=== PATIENT | male | born 1980 | race Hispanic/Latino ===

== ENCOUNTER 2023-05-30 09:30 | Emergency (ER) | payer SELFPAY ==
[2023-05-30] MEDS ORDERED: HYDROCODONE/APAP 10/325 TAB ONE (10:14)
[2023-05-30] MEDS ORDERED: TDAP (DIPHTH,PERTUSS(ACELL),TET VAC) 0.5 ML VIAL IMVAC ONE (10:23)
--- NOTE | 2023-05-30 10:40 | ER ---
Nurse's Notes [facility] Name: Kayden Melton Age: 43 yrs Sex: Male : 1980 Arrival Date: 05/30/2023 Time: 09:30 Bed 19 Private MD: Diagnosis: Puncture wound without foreign body of forearm-ulnar artery decreased flow, flexor diditorum disruption;Unilateral inguinal hernia, without obstruction or gangrene-LEFT Presentation: 05/30 09:37 Chief complaint: Patient states: PUNCTURE WOUND TO LEFT DISTAL ULNAR AREA WITH STEAK bp KNIFE, STATES ACCIDENTAL WHILE METAL WORKING. Coronavirus screen: At this time, the client does not indicate any symptoms associated with coronavirus-19. Ebola Screen: No symptoms or risks identified at this time. Complicating Factors: There are no complicating factors for this patient. Initial Sepsis Screen: Does the patient meet any 2 criteria? No. Patient's initial sepsis screen is negative. Does the patient have a suspected source of infection? No. Patient's initial sepsis screen is negative. Risk Assessment: Do you want to hurt yourself or someone else? Patient reports no desire to harm self or others. Onset of symptoms was May 30, 2023 at 09:00. 09:37 Method Of Arrival: Ambulatory bp 09:37 Acuity: JONATHAN 3 bp Triage Assessment: 09:38 General: Appears distressed, Behavior is cooperative, appropriate for age, anxious. bp Pain: Complains of pain in left wrist. EENT: No deficits noted. Neuro: No deficits noted. Cardiovascular: No deficits noted. Respiratory: No deficits noted. GI: No signs and/or symptoms were reported involving the gastrointestinal system. : No signs and/or symptoms were reported regarding the genitourinary system. Derm: No deficits noted. Musculoskeletal: No deficits noted. Injury Description: Laceration sustained to left wrist. Historical: - Allergies: 09:38 No Known Allergies; bp - Home Meds: 09:38 None [Active]; bp - PMHx: 09:38 None; bp - Immunization history:: Last tetanus immunization: unknown. - Social history:: Smoking status: unknown. Screenin:45 [facility] ED Fall Risk Assessment (Adult) Score/Fall Risk Level 0 - 2 = Low Risk. Abuse eh3 screen: Denies threats or abuse. Denies injuries from another. Nutritional screening: No deficits noted. Tuberculosis screening: No symptoms or risk factors identified. Assessment: 09:35 General: Appears distressed, uncomfortable, Behavior is cooperative, appropriate for eh3 age, restless. Pain: Complains of pain in left arm. Neuro: Level of Consciousness is awake, alert, obeys commands, Oriented to person, place, time, situation. Cardiovascular: Capillary refill < 3 seconds Patient's skin is warm and dry. Respiratory: Airway is patent Respiratory effort is even, unlabored, Respiratory pattern is regular, symmetrical. GI: Abdomen is round non-distended. Derm: Skin is intact, is healthy with good turgor, Wound noted palmar aspect of left forearm Wound is puncture. Musculoskeletal: CMS intact in all except left hand. Unable to move left fingers. 09:35 Injury Description: Laceration is clean, 0.5 to 2.5 cm long, bleeding moderately, with eh3 pulsatile bleeding. 10:30 Reassessment: Patient appears in no apparent distress at this time. Patient and/or 3 family updated on plan of care and expected duration. Pain level reassessed. Patient is alert, oriented x 3, equal unlabored respirations, skin warm/dry/pink. 11:30 Reassessment: Patient appears in no apparent distress at this time. Patient and/or 3 family updated on plan of care and expected duration. Pain level reassessed. Patient is alert, oriented x 3, equal unlabored respirations, skin warm/dry/pink. Vital Signs: 09:32 BP 124 / 92; Pulse 85; Resp 20; Pulse Ox 93% on R/A; eh3 10:30 BP 160 / 119; Pulse 58; Resp 18; Pulse Ox 100% on R/A; eh3 11:30 BP 140 / 82; Pulse 60; Resp 18; Pulse Ox 98% on R/A; eh3 ED Course: 09:31 Patient arrived in ED. rg4 09:33 Arm band placed on Patient placed in an exam room, on a stretcher. ld1 09:35 Lori Neville PA-C is PHCP. sb4 09:35 Yandel Godinez MD is Attending Physician. sb4 09:35 Lisa Bruno, TAYLA is Primary Nurse. eh3 09:38 Triage completed. bp 09:45 Patient has correct armband on for positive identification. Placed in gown. Bed in low eh3 position. Call light in reach. Side rails up X2. Provided Education on: N/A. delivery assistant on. Pulse ox on. Warm blanket given. 09:59 Forearm Left XRAY In Process Unspecified. EDMS 10:00 Inserted saline lock: 20 gauge in right forearm, using aseptic technique. Blood eh3 collected. 10:02 Attending Physician role handed off by Yandel Godinez MD [facility] 10:02 Delta English MD is Attending Physician. [facility] 11:00 Wound care: to puncture located on palmar aspect of left forearm was cleaned with eh3 Betadine, irrigated with normal saline, dressed with 4X4s, Kerlix. 11:56 No provider procedures requiring assistance completed. Patient transferred, IV remains eh3 in place. Administered Medications: 10:00 Drug: [place] PO 10 mg-325 mg 1 tabs Route: PO; eh3 11:00 Follow up: Response: Pain is decreased eh3 10:25 Drug: Boostrix Tdap IM 0.5 ml Route: IM; Site: right deltoid; eh3 11:00 Follow up: Response: (VIS) Vaccine information sheet provided today. Questions and/or eh3 concerns addressed. VIS edition date: Jun 26, 2021.; No adverse reaction 11:00 Drug: NS 0.9% IV 1000 ml Route: IV; Rate: 1 bolus; Site: right forearm; eh3 11:55 Follow up: IV Status: Infusion continued upon transfer; IV Intake: 300ml eh3 11:00 Drug: morphine IVP or IV 4 mg Route: IVP; Infused Over: 4 mins; Site: right forearm; eh3 11:55 Follow up: Response: No adverse reaction; Pain is decreased eh3 11:00 Drug: Ondansetron IVP 4 mg Route: IVP; Site: right forearm; eh3 11:55 Follow up: Response: No adverse reaction eh3 11:00 Drug: ceFAZolin IVPB 2 grams Route: IVPB; Infused Over: 30 mins; Site: right forearm; eh3 11:30 Follow up: Response: No adverse reaction; IV Status: Completed infusion; IV Intake: eh3 100ml Medication: 10:25 Vaccine Information Statement (VIS) provided today. Questions and/or concerns eh3 addressed. VIS edition date: June 26, 2021. Intake: 11:30 IV: 100ml; Total: 100ml. eh3 11:55 IV: 300ml; Total: 400ml. eh3 Outcome: 10:40 ER care complete, transfer ordered by MD. day 11:56 Transferred by ground EMS to [facility], Transfer form eh3 completed. 11:56 Condition: stable 11:56 Instructed on the need for transfer. 11:56 Patient left the ED. eh3 Signatures: Dispatcher [employer] EDDelta Ramey MD MD cha Garcia, Rubi rg4 Murphy Cadena, RN RN bp Jimena Murillo RN RN ld1 Lisa Bruno RN RN eh3 Lori Neville, PAFrancie PA-Nellie sb4 Corrections: (The following items were deleted from the chart) 11:44 09:57 Lisa Bruno, TAYLA is Primary Nurse. eh3 eh3
--- NOTE | 2023-05-30 10:40 | EDPHYS ---
Physician Documentation [facility] Name: Kayden Melton Age: 43 yrs Sex: Male : 1980 Arrival Date: 05/30/2023 Time: 09:30 Bed 19 Private MD: ED Physician Delta English HPI: 05/30 10:29 This 43 yrs old Male presents to ER via Ambulatory with complaints of shay Laceration To Arm. 10:29 The patient has a laceration related to: cooking, occurred at home. The laceration(s) shay is(are) located on the dorsal aspect of left forearm and palmar aspect of left forearm. Onset: The symptoms/episode began/occurred just prior to arrival. Associated signs and symptoms: The patient has no apparent associated signs or symptoms. The patient has not experienced similar symptoms in the past. Historical: - Allergies: 09:38 No Known Allergies; bp - Home Meds: 09:38 None [Active]; bp - PMHx: 09:38 None; bp - Immunization history:: Last tetanus immunization: unknown. - Social history:: Smoking status: unknown. ROS: 10:31 Constitutional: Negative for fever, chills, and weight loss, Eyes: Negative for injury, shay pain, redness, and discharge, ENT: Negative for injury, pain, and discharge, Neck: Negative for injury, pain, and swelling, Cardiovascular: Negative for chest pain, palpitations, and edema, Respiratory: Negative for shortness of breath, cough, wheezing, and pleuritic chest pain, Abdomen/GI: Negative for abdominal pain, nausea, vomiting, diarrhea, and constipation, Back: Negative for injury and pain, : Negative for injury, bleeding, discharge, and swelling, Skin: Negative for injury, rash, and discoloration, Neuro: Negative for headache, weakness, numbness, tingling, and seizure, Psych: Negative for depression, anxiety, suicide ideation, homicidal ideation, and hallucinations, Allergy/Immunology: Negative for hives, rash, and allergies, Endocrine: Negative for neck swelling, polydipsia, polyuria, polyphagia, and marked weight changes, Hematologic/Lymphatic: Negative for swollen nodes, abnormal bleeding, and unusual bruising. 10:31 MS/extremity: Positive for decreased range of motion, pain, swelling, tenderness, of the dorsal aspect of left forearm and palmar aspect of left forearm. Exam: 10:31 Constitutional: This is a well developed, well nourished patient who is awake, alert, shay and in no acute distress. Head/Face: Normocephalic, atraumatic. Eyes: Pupils equal round and reactive to light, extra-ocular motions intact. Lids and lashes normal. Conjunctiva and sclera are non-icteric and not injected. Cornea within normal limits. Periorbital areas with no swelling, redness, or edema. ENT: Nares patent. No nasal discharge, no septal abnormalities noted. Tympanic membranes are normal and external auditory canals are clear. Oropharynx with no redness, swelling, or masses, exudates, or evidence of obstruction, uvula midline. Mucous membranes moist. Neck: Trachea midline, no thyromegaly or masses palpated, and no cervical lymphadenopathy. Supple, full range of motion without nuchal rigidity, or vertebral point tenderness. No Meningismus. Chest/axilla: Normal chest wall appearance and motion. Nontender with no deformity. No lesions are appreciated. Cardiovascular: Regular rate and rhythm with a normal S1 and S2. No gallops, murmurs, or rubs. Normal PMI, no JVD. No pulse deficits. Respiratory: Lungs have equal breath sounds bilaterally, clear to auscultation and percussion. No rales, rhonchi or wheezes noted. No increased work of breathing, no retractions or nasal flaring. Abdomen/GI: Soft, non-tender, with normal bowel sounds. No distension or tympany. No guarding or rebound. No evidence of tenderness throughout. Back: No spinal tenderness. No costovertebral tenderness. Full range of motion. Male : Normal genitalia with no discharge or lesions. Skin: Warm, dry with normal turgor. Normal color with no rashes, no lesions, and no evidence of cellulitis. Neuro: Awake and alert, GCS 15, oriented to person, place, time, and situation. Cranial nerves II-XII grossly intact. Motor strength 5/5 in all extremities. Sensory grossly intact. Cerebellar exam normal. Normal gait. Psych: Awake, alert, with orientation to person, place and time. Behavior, mood, and affect are within normal limits. 10:31 Musculoskeletal/extremity: ROM: limited active range of motion due to pain, limited passive range of motion due to pain, Pulses: noted to be 3+ in the left radial artery, Tingling of extremity. numbness, Compartment Syndrome exam of affected extremity: severe pain, numbness, tingling, sensation decreased, Joints: All joints appear normal with full range of motion. Tendon exam: postive for cant flex 3,4 and 5. 11:02 Abdomen/GI: Hernia: noted in the left femoral area, incarceration, is not appreciated, shay tenderness, is not appreciated, bowel sounds are appreciated on auscultation, reduced. 11:02 : CVA tenderness, is absent, Male external genitalia: normal, Bladder: is normal, Sexual behavior: the patient is sexually active, and reports a single partner. Vital Signs: 09:32 BP 124 / 92; Pulse 85; Resp 20; Pulse Ox 93% on R/A; eh3 10:30 BP 160 / 119; Pulse 58; Resp 18; Pulse Ox 100% on R/A; eh3 11:30 BP 140 / 82; Pulse 60; Resp 18; Pulse Ox 98% on R/A; eh3 MDM: 09:35 Patient medically screened. sb4 10:41 Data reviewed: vital signs, nurses notes, lab test result(s), radiologic studies, plain shay films. Consideration of Admission/Observation Escalation of care including admission/observation considered. I considered the following discharge prescriptions or medication management in the emergency department Medications were administered in the Emergency Department. See MAR. Independent interpretation of the following test(s) in the Emergency Department X-Ray: My interpretation is no fx, fb. Test considered but Not performed: CT: no angio. 05/30 10:29 Order name: CBC with Diff [facility] 05/30 10:29 Order name: Comprehensive Metabolic Panel [facility] 05/30 10:29 Order name: PT-INR [facility] 05/30 09:35 Order name: Forearm Left XRAY [facility] 05/30 10:29 Order name: Wound dressing; Complete Time: 11:39 [facility] 05/30 10:29 Order name: NPO; Complete Time: 10:49 [facility] Administered Medications: 10:00 Drug: [place] PO 10 mg-325 mg 1 tabs Route: PO; 3 11:00 Follow up: Response: Pain is decreased 3 10:25 Drug: Boostrix Tdap IM 0.5 ml Route: IM; Site: right deltoid; 3 11:00 Follow up: Response: (VIS) Vaccine information sheet provided today. Questions and/or [facility] concerns addressed. VIS edition date: Jun 26, 2021.; No adverse reaction 11:00 Drug: NS 0.9% IV 1000 ml Route: IV; Rate: 1 bolus; Site: right forearm; 3 11:55 Follow up: IV Status: Infusion continued upon transfer; IV Intake: 300ml [facility] 11:00 Drug: morphine IVP or IV 4 mg Route: IVP; Infused Over: 4 mins; Site: right forearm; 3 11:55 Follow up: Response: No adverse reaction; Pain is decreased 3 11:00 Drug: Ondansetron IVP 4 mg Route: IVP; Site: right forearm; 3 11:55 Follow up: Response: No adverse reaction [facility] 11:00 Drug: ceFAZolin IVPB 2 grams Route: IVPB; Infused Over: 30 mins; Site: right forearm; 3 11:30 Follow up: Response: No adverse reaction; IV Status: Completed infusion; IV Intake: eh3 100ml Disposition Summary: 05/30/23 10:40 Transfer Ordered Transfer Location: [facility] Reason: Higher level of care shay Condition: Stable shay Problem: new shay Symptoms: have improved shay Accepting Physician: to [facility](05/30/23 11:56) eh3 Diagnosis - Puncture wound without foreign body of forearm - ulnar artery decreased flow, shay flexor diditorum disruption - Unilateral inguinal hernia, without obstruction or gangrene - LEFT shay Forms: - Medication Reconciliation Form shay - SBAR form shay Signatures: Dispatcher [employer] EDDelta Ramey MD MD cha Peltier, Brian RN Lisa Winter RN RN eh3 Lori Neville PA-C PA-C sb4 Corrections: (The following items were deleted from the chart) 11:11 10:40 to [facility] 11:56 11:11 to [facility]3
[2023-05-30 10:54] LABS: Absolute Lymphocytes (CBC) 1.3 K/uL (0.7-4.9); Hematocrit 41.6 % (39.6-49.0); Lymphocytes % 18.1 % (15.3-44.8); MCV 91.8 fL (80-100); MPV 9.2 fL (7.6-11.3); RBC Red Blood Cell Count 4.53 M/uL (4.33-5.43)
[2023-05-30] MEDS ORDERED: CEFAZOLIN SODIUM 1 GM/VIAL ONE (11:02)
[2023-05-30] MEDS ORDERED: ONDANSETRON 4 MG/2 ML VIAL ONE (11:03)
[2023-05-30] MEDS ORDERED: MORPHINE 4 MG/ML SYR ONE (11:03)
[2023-05-30] MEDS ORDERED: NA CHLORIDE 0.9% 1,000 ML ONE (11:03)
[2023-05-30] MEDS ORDERED: NA CHLORIDE 0.9% 100 ML ONE (11:03)
--- NOTE | 2023-05-30 11:09 | RAD REPORT ---
EXAM DESCRIPTION: RAD - Forearm Left - 05/30/2023 9:57 am CLINICAL HISTORY: trauma COMPARISON: No comparisons TECHNIQUE: Left forearm, 2 views. FINDINGS: No fracture is identified. There is no dislocation or periosteal reaction noted. Pronounced soft tissue swelling along the volar and slightly lateral aspect of the mid to distal fore arm. Radiodense punctate material overlying the anteromedial soft tissues of the wrist. Sequelae of wire fixation along the fifth metacarpal. IMPRESSION: No acute osseous abnormality. Pronounced soft tissue swelling with soft tissue gas along the volar and lateral forearm, with puncta te radiodensities antro medially at the level of the wrist, may relate to foreign bodies.
[2023-05-30 11:10] LABS: Albumin 4.2 g/dL (3.4-5.0); Bilirubin Total 0.4 mg/dL (0.2-1.0); Potassium 3.9 mEq/L (3.5-5.1); Protein, Total 7.4 g/dL (6.4-8.2)
[2023-05-30 11:36] LABS: Protime INR 0.99
[2023-05-30 12:34] VITALS: BP 140/82; O2SAT 98
== END 2023-05-30 11:56 | disposition short-term general hospital (02) ==
LOC: ER 09:30
DX: S51.832A Puncture wound without foreign body of left forearm, initial encounter (principal); K40.90 Unilateral inguinal hernia, without obstruction or gangrene, not specified as recurrent
CPT/HCPCS: 36415; 80053; 85025; 85610; 96365; 96372; 96375; 99285; J0690; J2405; J7030

== ENCOUNTER 2023-06-29 09:34 | Emergency (ER) | payer SELFPAY ==
--- OUTSIDE RECORDS SUMMARY | 2023-06-29 09:37 | XMS REPORT | Continuity of Care Document ---
:1980 Author Organization [facility] t Address [address] [facility] [address] [place] [address] Care Team Providers Name Role Phone Pcp, Patient Does Not Have A Primary Care Physician +[phone] Manisha Lockwood MD Attending Clinician MANISHA LOCKWOOD Admitting Clinician Unavailable Manisha Lockwood MD Admitting Clinician Problems This patient has no known problems. Allergies, Adverse Reactions, Alerts Allergy Allergy Status Severity Reaction(s) Onset Inactive Treating Comm ents Source Name Type Date Date Clinician NO KNOWN Drug Active Univers ALLERGIE Class ity of [facility] Social History Social Habit Start Date Stop Date Quantity Comments Source Gender identity [facility] Sexual orientation [facility] Sex [facility]igned At [birth year] [facility] Smoking Status Start Date Stop Date Source Tobacco smoking consumption [facility] Branch Medications Ordered Filled Start Stop Current Ordering Indication Dosage Frequency Signature Comments Components Source Medication Medication Date Date Medication? Clinician (SIG) Name Name ceFAZolin 2022- No 2000mg 2,000 mg, Univers (ANCEF) 05-30 Intravenou ity o f 2,000 mg in 21:00: 21:48 s, ONCE, 1 [place] NaCl 0.9% 00 :00 dose, On Medica l (NS) 100 mL [facility] Branch MINI-BAG 05/30/23 at 1600, Administer over 30 Minutes, 100 mL
Reas on for Anti-Infec tive: Empiric Therapy for Suspected Infection< br>Empiric Therapy Site: Skin / Soft tissue
Duration of therapy: 72 hours lactated 2022- No 1000mL at 999 [facility] ers ringers IV 05-30 mL/hr, ity of infusion 18:30: 01:00 1,000 mL, Armando as 1,000 mL 00 :00 Intravenou Medic al s, ONCE, 1 Branch dose, On 05/30/23 at 1330, STAT amoxicillin 2022- Yes [id number] 1{tbl} Take 1 Univers -clavulanat 05-30 tablet by it y of e 00:00: 04:59 mouth in [place] (AUGMENTIN) 00 :00 the Medical 875-125 mg morning Branch per tablet and 1 tablet in the evening. Do all this for 7 days. Vital Signs Vital Name Observation Time Observation Value Comments Source Systolic blood 2023-05-31 00:50:57 159 mm[Hg] [facility] pressure [facility] Diastolic blood 2023-05-31 00:50:57 104 mm[Hg] [facility] Heart rate 2023-05-31 00:50:57 63 /min [facility] Respiratory rate 2023-05-31 00:50:57 16 /min [facility] Oxygen saturation in 2023-05-31 00:50:57 99 /min [facility] Arterial blood by [facility] Pulse oximetry [place] Body temperature 2023-05-30 18:28:59 36.56 Connie [facility] Body height 2023-05-30 18:20:00 180.3 cm [facility] Body weight 2023-05-30 18:20:00 79.379 kg [facility] BMI 2023-05-30 18:20:00 24.41 kg/m2 [facility] Procedures Procedure Date / Time Performing Clinician Source Performed BASIC METABOLIC PANEL 2023-05-30 18:29:00 Son Borrego [facility] (NA, K, CL, CO2, [facility] GLUCOSE, BUN, CREATININE, CA) CBC WITHOUT DIFF 2023-05-30 18:29:00 Son Borrego [facility] PROTHROMBIN TIME / INR 2023-05-30 18:29:00 Son Borrego [facility] ACTIVATED PARTIAL 2023-05-30 18:29:[address] [facility] HB ABO GROUPING 2023-05-30 18:29:00 Son Borrego [facility] Encounters Start End Encounter Admission Attending Care Care Encounter Source Date/Time Date/Time Type Type Clinicians Facility Department ID 2023-05-30 2023-05-30 Emergency [facility] STR [id number] Univers 13:21:00 19:59:00 ity [facility] 2023-05-30 2023-05-30 Emergency Manisha Lockwood TRAUMA [id number] Univers 13:21:00 19:59:00 [place] [id number] [facility] [id number] Carl chauhan [id number] [address] Results Test Description Test Time Test Comments Results Result Comments Source Basic Metabolic Panel (NA, K, CL, CO2, GLUCOSE, BUN, 2023-05 18:48:51 CREATININE, CA) Test Item Value Reference Range Interpretation Comme nts NA (test code = 3092446690) 140 mmol/L 135-145 K (test code = 7026504114) 4.2 mmol/L 3.5-5.0 CL (test code = 6491862690) 107 mmol/L 98-108 CO2 TOTAL (test code = 5808699549) 25 mmol/L 23-31 AGAP (test code = 0365248605) 8 2-16 BUN (test code = 0951230647) 11 mg/dL 7-23 GLUCOSE (test code = 7440855945) 80 mg/dL 70-110 CREATININE (test code = 0.81 mg/dL 0.60-1.25 9214740895) CALCIUM (test code = 7951394500) 8.5 mg/dL 8.6-10.6 L eGFR (test code = 4836089153) 104.0 mL/min/1.73m2 LOUISE (test code = LOUISE) Association of Glomerular Filtration Rate (GFR) and Staging of Kidney Disease* + +-------- + ------+| GFR (mL/min/1.73 m2) ?| With Kidney Damage ?| ?Without Kidney Damage+ +-- + +| ?>90 ?| ?Stage one ?| ? Normal ?+ +------- + -------+| ?60-89 ?| ?Stage two ?| ? Decreased GFR ? + +-------- + ------+| ?30-59 ?| ?Stage three ?| ? Stage three ? + +-------- + ------+| ?15-29 ?| ?Stage four ? | ? Stage four ?+ +------- + -------+| ?<15 (or dialysis) ? ?| ?Stage five ? | ? Stage five ?+ +------- + -------+ *Each stage assumes the associated GFR level has been in effect for at least three months. ?Stages 1 to 5, with or without kidney disease, indicate chronic kidney disease. Notes: Determination of stages one and two (with eGFR >59mL/min/1.73 m2) requires estimation of kidney damage for at least three months as defined by structural or functional abnormalities of the kidney, manifested by either:Pathological abnormalities or Markers of kidney damage (including abnormalities in the composition of the blood or urine or abnormalities in imaging tests). Lab Interpretation (test code = Abnormal 17222-2) [facility] Time / [id number] 18:46:49 Test Item Value Reference Range Interpretation Comments PROTIME PATIENT (test 11.6 See_Comment [Auto mated message] code = 5964-2) The system [employer] generated this result transmitted ref erence range: 10.1 - 1 2.6 Seconds. The re ference range was not u sed to interpret this result as normal/abnor mal. INR (test code = 6301-6) 1.0 Nor mal INR <1.1; Warfarin Therap eutic range 2.0 to 3. 0 or 2.5 to 3.5, dep ending upon the indica tions. Lab Interpretation (test Normal code = 92683-5) [facility] HospitalaPTT2023-07-10 18:46:49 Test Item Value Reference Range Interpretation Comments APTT Patient (test code = 34 See_Comment [ Automated message] 3173-2) The system [employer] generated this result transmitted ref erence range: 26 - 36 Seconds. The re ference range was not u sed to interpret this result as normal/abnor mal. Lab Interpretation (test Normal code = 93234-4) [facility] / [id number] 18:37:50 Test Item Value Reference Range Interpretation Comments WBC (test code = 6690-2) 8.91 See_Comment [A utomated message] The system [employer] generated this result transmit tay reference range : 4.20 - 10.70 10*3/?L. The reference range was not used to interpret this result as normal/abnormal . RBC (test code = 789-8) 4.17 See_Comment L [Au tomated message] The system [employer] [facility] generated this result transmit tay reference range : 4.26 - 5.52 10* 6/?L. The reference r nadeem was not used to interpret this result as normal/abnormal . HGB (test code = 718-7) 13.0 g/dL 12.2-16.4 HCT (test code = 4544-3) 37.4 % 38.4-49.3 L MCH (test code = 785-6) 31.2 pg 26.1-32.7 MCV (test code = 787-2) 89.7 fL 81.7-95.6 MCHC (test code = 786-4) 34.8 g/dL 31.2-35.0 PLT (test code = 777-3) 142 See_Comment L [Au tomated message] The system [employer] [facility] generated this result transmit tay reference range : 150 - 328 10*3/?L. The reference range was not used to interpret this result as normal/abnormal . MPV (test code = 10.9 fL 9.8-13.0 36658-6) RDW-CV (test code = 12.7 % 12.1-15.4 788-0) RDW-SD (test code = 41.6 fL 38.5-51.6 10063-5) NRBC x10^3 (test code = See_Comment [Au tomated message] [id number]) The system [employer] generated this result transmit tay reference range : 10*3/?L. The reference range was not used to interpret this result as normal/abnormal . NRBC/100 WBC (test code 0.0 See_Comment [Au tomated message] = 6266566706) The system [facility] generated this result transmit tay reference range : 0.0 - 10.0 /100 WBC s. The reference r nadeem was not used to interpret this result as normal/abnormal . IPF % (test code = 0536161684) Lab Interpretation (test Abnormal code = 99979-3) [facility] Screen - The Type and Screen expires at midnight on the 3rd day after it was drawn. A current Type and Screen is required when RBCs are requested. For all other blood products, a Type and Scree n performed during the current hospitalizati...2023-05-30 18:37:00 Test Item Value Reference Range Interpretation Comments ABO & RH (test code = 20) O POSITIVE IAT (test code = 1185) Negative [facility]"
[2023-06-29 10:39] LABS: Absolute Lymphocytes (CBC) 1.2 K/uL (0.7-4.9); Hematocrit 41.4 % (39.6-49.0); Lymphocytes % 22.4 % (15.3-44.8); MCV 90.9 fL (80-100); MPV 8.6 fL (7.6-11.3); Platelets 146 thou/uL (152-406); RBC Red Blood Cell Count 4.56 M/uL (4.33-5.43)
[2023-06-29 10:54] LABS: Albumin 3.7 g/dL (3.4-5.0); Bilirubin Total 0.5 mg/dL (0.2-1.0); Potassium 3.6 mEq/L (3.5-5.1); Protein, Total 6.8 g/dL (6.4-8.2)
--- NOTE | 2023-06-29 11:07 | RAD REPORT ---
EXAM DESCRIPTION: CT - Abdomen Pelvis W Contrast - 06/29/2023 10:50 am CLINICAL HISTORY: ABD PAIN COMPARISON: No comparisons TECHNIQUE: Thin cut axial CT imaging of the abdomen and pelvis was performed following intravenous a dministration of 100 mL Isovue 300. Multiplanar reformats were generated and reviewed. All CT scans are performed using dose optimization technique as appropriate and may include automated exposure control or mA/KV adjustment according to patient size. FINDINGS: No suspicious findings in the lung bases. The liver, spleen, adrenal glands, and pancreas show no suspicious findings. Sub centimeter right dewey er lobe probable cyst, difficult to characterize given small size. Gallbladder shows mild layering sl udge. . Symmetric renal function is seen with no hydronephrosis or suspicious renal mass. No dilated bowel loops or bowel wall thickening. No free air, free fluid or inflammatory stranding. L arge left inguinal hernia containing fat. Mild adjacent fat stranding. No mass or bulky lymphadenopat hy. The urinary bladder is without significant finding. No acute osseus abnormality. 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 IMPRESSION: Large left inguinal hernia containing fat with mild adjacent fat stranding. Please corre late clinically for irreducibility. Grade 1 spondylolisthesis at L4-5, likely of degenerative nature.
--- NOTE | 2023-06-29 11:48 | EDPHYS ---
Physician Documentation [facility] Name: Kayden Melton Age: 43 yrs Sex: Male : 1980 Arrival Date: 06/29/2023 Time: 09:34 Bed 16 Private MD: ED Physician Ronnie Parks HPI: 06/29 10:45 This 43 yrs old Male presents to ER via Ambulatory with complaints of snw Abdominal Pain. 10:45 The patient presents with abdominal pain in the left lower quadrant. Onset: The snw symptoms/episode began/occurred suddenly, 2 day(s) ago, and became persistent. The symptoms radiate to groin. Associated signs and symptoms: Pertinent positives: nausea and vomiting. The symptoms are described as achy, shooting. Severity of pain: At its worst the pain was moderate severe. The patient has experienced a previous episode, but today's symptoms are worse. The patient has not recently seen a physician. no PCP. Historical: - Allergies: 09:50 No Known Allergies; iw - Home Meds: 09:50 None [Active]; iw - PMHx: 09:50 None; iw - PSHx: 09:50 hernia repair; iw - Immunization history:: Client reports having NOT received the Covid vaccine. - Social history:: Smoking status: Patient reports the use of cigarette tobacco products. ROS: 10:37 Constitutional: Negative for fever, chills, and weight loss, Eyes: Negative for injury, snw pain, redness, and discharge, ENT: Negative for injury, pain, and discharge, Neck: Negative for injury, pain, and swelling, Cardiovascular: Negative for chest pain, palpitations, and edema, Respiratory: Negative for shortness of breath, cough, wheezing, and pleuritic chest pain, Back: Negative for injury and pain, : Negative for injury, bleeding, discharge, and swelling, MS/Extremity: Negative for injury and deformity, Skin: Negative for injury, rash, and discoloration, Neuro: Negative for headache, weakness, numbness, tingling, and seizure, Psych: Negative for depression, anxiety, suicide ideation, homicidal ideation, and hallucinations. 10:37 Abdomen/GI: Positive for abdominal pain, nausea, vomiting, of the left lower quadrant and suprapubic area. Exam: 10:36 Constitutional: This is a well developed, well nourished patient who is awake, alert, snw and in no acute distress. Head/Face: Normocephalic, atraumatic. Eyes: Pupils equal round and reactive to light, extra-ocular motions intact. Lids and lashes normal. Conjunctiva and sclera are non-icteric and not injected. Cornea within normal limits. Periorbital areas with no swelling, redness, or edema. ENT: Nares patent. No nasal discharge, no septal abnormalities noted. Tympanic membranes are normal and external auditory canals are clear. Oropharynx with no redness, swelling, or masses, exudates, or evidence of obstruction, uvula midline. Mucous membranes moist. Neck: Trachea midline, no thyromegaly or masses palpated, and no cervical lymphadenopathy. Supple, full range of motion without nuchal rigidity, or vertebral point tenderness. No Meningismus. Chest/axilla: Normal chest wall appearance and motion. Nontender with no deformity. No lesions are appreciated. Cardiovascular: Regular rate and rhythm with a normal S1 and S2. No gallops, murmurs, or rubs. Normal PMI, no JVD. No pulse deficits. Respiratory: Lungs have equal breath sounds bilaterally, clear to auscultation and percussion. No rales, rhonchi or wheezes noted. No increased work of breathing, no retractions or nasal flaring. Back: No spinal tenderness. No costovertebral tenderness. Full range of motion. Skin: Warm, dry with normal turgor. Normal color with no rashes, no lesions, and no evidence of cellulitis. MS/ Extremity: Pulses equal, no cyanosis. Neurovascular intact. Full, normal range of motion. Neuro: Awake and alert, GCS 15, oriented to person, place, time, and situation. Cranial nerves II-XII grossly intact. Motor strength 5/5 in all extremities. Sensory grossly intact. Cerebellar exam normal. Normal gait. Psych: Awake, alert, with orientation to person, place and time. Behavior, mood, and affect are within normal limits. 10:36 Abdomen/GI: Inspection: abdomen appears normal, Bowel sounds: active, Palpation: mild abdominal tenderness, in the suprapubic area and left lower quadrant, Hernia: noted in the left femoral area, tenderness, that is moderate. 10:36 : Male external genitalia: left hernia into scrotal area . Vital Signs: 09:47 BP 139 / 98; Pulse 84; Resp 16; Temp 98.8; Pulse Ox 100% on R/A; Weight 74.84 kg; iw Height 5 ft. 11 in. ; Pain 4/10; 11:59 BP 136 / 91; Pulse 79; Resp 18; Pulse Ox 100% on R/A; ld1 09:47 Body Mass Index 23.01 (74.84 kg, 180.34 cm) iw 09:47 Pain Scale: Adult iw MDM: 09:53 Patient medically screened. snw 10:47 Differential diagnosis: diverticulitis, non-specific abd pain, urinary tract infection, snw Hernia. Data reviewed: vital signs, nurses notes, lab test result(s), radiologic studies. I considered the following discharge prescriptions or medication management in the emergency department Medications were administered in the Emergency Department. See MAR. Counseling: I had a detailed discussion with the patient and/or guardian regarding: the historical points, exam findings, and any diagnostic results supporting the discharge/admit diagnosis, lab results, radiology results. 11:40 Management of patient was discussed with the following: [employer]: Dr. Danielle car contacted and will see patient in clinic.. 06/29 09:53 Order name: CBC with Diff; Complete Time: 10:51 snw 06/29 09:53 Order name: CMP; Complete Time: 10:56 snw 06/29 09:53 Order name: Lipase; Complete Time: 10:56 snw 06/29 09:53 Order name: CT Abd/Pelvis - IV Contrast Only; Complete Time: 11:12 snw 06/29 09:53 Order name: IV Saline Lock; Complete Time: 10:43 snw 06/29 09:53 Order name: Labs collected and sent; Complete Time: 10:43 snw 06/29 10:02 Order name: NPO; Complete Time: 10:10 snw Administered Medications: 10:43 Drug: NS 0.9% IV 1000 ml Route: IV; Rate: 125 ml/hr; Site: left antecubital; ld1 10:59 Drug: Haloperidol IVP 2.5 mg/50 mL 2.5 mg Route: IVP; Site: left antecubital; ld1 Disposition Summary: 06/29/23 11:47 Discharge Ordered Location: Home snw Condition: Stable snw Diagnosis - Unilateral inguinal hernia, without obstruction or gangrene, recurrent snw Followup: snw - With: Emergency Department - When: As needed - Reason: Worsening of condition Followup: snw - With: Eagle Santos MD - When: 1 - 2 days - Reason: Recheck today's complaints, Continuance of care Discharge Instructions: - Discharge Summary Sheet snw - Inguinal Hernia, Adult, [id number] snw Forms: - Medication Reconciliation Form snw - Thank You Letter snw - Antibiotic Education snw - Prescription Opioid Use snw - Patient Portal Instructions snw Prescriptions: - Cipro 500 mg Oral Tablet - take 1 tablet by ORAL route every 12 hours for 7 days; 14 tablet; Refills: 0, snw Product Selection Permitted - Mobic 7.5 mg Oral Tablet - take 1 tablet by ORAL route once daily take with food; 20 tablet; Refills: 0, snw Product Selection Permitted - promethazine 25 mg Oral Tablet - take 1 tablet by ORAL route every 6 hours As needed; 15 tablet; Refills: 0, snw Product Selection Permitted Signatures: Dispatcher [employer] EDMS Suyapa Ferguson, RUG SETTER VELVET-C RUG SETTER VELVET-Csnw Maya Bridges, RN RN iw Jimena Murillo RN RN ld1
--- NOTE | 2023-06-29 11:48 | ER ---
Nurse's Notes [facility] Name: Kayden Melton Age: 43 yrs Sex: Male : 1980 Arrival Date: 06/29/2023 Time: 09:34 Bed 16 Private MD: Diagnosis: Unilateral inguinal hernia, without obstruction or gangrene, recurrent Presentation: 06/29 09:47 Chief complaint: Patient states: woke up with sharp pain in pelvis , i have been iw dealing with a hernia for some time, he has been able to manipulate it back in in the past, he is very swollen down there now. Coronavirus screen: At this time, the client does not indicate any symptoms associated with coronavirus-19. Ebola Screen: Patient negative for fever greater than or equal to 101.5 degrees Fahrenheit, and additional compatible Ebola Virus Disease symptoms Patient denies exposure to infectious person. Patient denies travel to an Ebola-affected area in the 21 days before illness onset. No symptoms or risks identified at this time. Initial Sepsis Screen: Does the patient meet any 2 criteria? Does the patient have a suspected source of infection? No. Patient's initial sepsis screen is negative. Risk Assessment: Do you want to hurt yourself or someone else? Patient reports no desire to harm self or others. Onset of symptoms was June 29, 2023. 09:47 Method Of Arrival: Ambulatory iw 09:47 Acuity: JONATHAN 3 iw Triage Assessment: 11:59 General: Appears in no apparent distress. uncomfortable, Behavior is calm, cooperative, ld1 appropriate for age. Historical: - Allergies: 09:50 No Known Allergies; iw - Home Meds: 09:50 None [Active]; iw - PMHx: 09:50 None; iw - PSHx: 09:50 hernia repair; iw - Immunization history:: Client reports having NOT received the Covid vaccine. - Social history:: Smoking status: Patient reports the use of cigarette tobacco products. Screenin:44 [facility] ED Fall Risk Assessment (Adult) History of falling in the last 3 months, ld1 including since admission No falls in past 3 months (0 pts). Abuse screen: Denies threats or abuse. Denies injuries from another. Nutritional screening: No deficits noted. Tuberculosis screening: No symptoms or risk factors identified. Assessment: 10:44 Reassessment: See triage assessment. Pain: Complains of pain in abdomen. GI: Abdomen is ld1 round non-distended, Bowel sounds present X 4 quads. Abd is soft Abdomen is tender to palpation. 11:59 Reassessment: Patient appears in no apparent distress at this time. Patient and/or ld1 family updated on plan of care and expected duration. Pain level reassessed. Patient is alert, oriented x 3, equal unlabored respirations, skin warm/dry/pink. 11:59 Reassessment:. ld1 Vital Signs: 09:47 BP 139 / 98; Pulse 84; Resp 16; Temp 98.8; Pulse Ox 100% on R/A; Weight 74.84 kg; iw Height 5 ft. 11 in. ; Pain 4/10; 11:59 BP 136 / 91; Pulse 79; Resp 18; Pulse Ox 100% on R/A; ld1 09:47 Body Mass Index 23.01 (74.84 kg, 180.34 cm) iw 09:47 Pain Scale: Adult iw ED Course: 09:39 Patient arrived in ED. im 09:50 Triage completed. iw 09:50 Arm band placed on. iw 09:51 Suyapa Ferguson FNP-C is PHCP. snw 09:51 Ronnie Parks MD is Attending Physician. snw 09:54 Jimena Murillo, TAYLA is Primary Nurse. ld1 10:43 No provider procedures requiring assistance completed. Inserted saline lock: 20 gauge ld1 in left antecubital area, using aseptic technique. Blood collected. 10:44 Patient has correct armband on for positive identification. Placed in gown. Bed in low ld1 position. Call light in reach. Side rails up X2. environmental monitoring specialist on. Pulse ox on. NIBP on. Door closed. Noise minimized. Warm blanket given. 10:52 CT Abd/Pelvis - IV Contrast Only In Process Unspecified. EDMS 11:47 Eagle Santos MD is Referral Physician. snw 12:00 IV discontinued, intact, bleeding controlled, No redness/swelling at site. ld1 Administered Medications: 10:43 Drug: NS 0.9% IV 1000 ml Route: IV; Rate: 125 ml/hr; Site: left antecubital; ld1 10:59 Drug: Haloperidol IVP 2.5 mg/50 mL 2.5 mg Route: IVP; Site: left antecubital; ld1 Medication: 12:00 VIS not applicable for this client. ld1 Outcome: 11:47 Discharge ordered by MD. car 12:00 Discharged to home ambulatory. ld1 12:00 Condition: stable 12:00 Discharge instructions given to patient, Instructed on discharge instructions, follow up and referral plans. medication usage, Demonstrated understanding of instructions, follow-up care, medications, Prescriptions given X 3. 12:00 Patient left the ED. ld1 Signatures: Dispatcher [employer] EDMS Suyapa Ferguson, CLIENT SERVICE EXECUTIVE-C CLIENT SERVICE EXECUTIVE-Csnw Maya Bridges, RN RN iw Jimena Murillo RN RN ld1 Renee Rico
[2023-06-29 12:14] VITALS: TEMP 98.8; O2SAT 100
[2023-06-29 12:19] VITALS: BP 136/91
== END 2023-06-29 12:00 | disposition home or self-care (01) ==
LOC: ER 09:34
DX: K40.90 Unilateral inguinal hernia, without obstruction or gangrene, not specified as recurrent (principal); Z72.0 Tobacco use
CPT/HCPCS: 36415; 74177; 80053; 83690; 85025; Q9967